=== PATIENT | female | born 1950 | race Two or more races ===

== ENCOUNTER 2018-03-23 15:01 | Outpatient (CLI) | payer OTHER ==
[~2018-03-23 15:01] MED LIST: DICLOFENAC POTA50 MG PO
== END 2018-03-23 15:22 | disposition home or self-care (01) ==
LOC: RAD 15:01
DX: S42.341D Displaced spiral fracture of shaft of humerus, right arm, subsequent encounter for fracture with routine healing (principal)

== ENCOUNTER 2020-02-28 15:59 | Outpatient (CLI) | payer OTHER | END 2020-02-28 16:03 | disposition home or self-care (01) | LOC: RAD 15:59 | PROVIDERS: ATTEND Physical Medicine & Rehabilitation | DX: M79.671 Pain in right foot (principal); S99.921A Unspecified injury of right foot, initial encounter ==

== ENCOUNTER 2020-10-11 16:58 | Outpatient (CLI) | payer OTHER | END 2020-10-11 17:02 | disposition home or self-care (01) | LOC: RAD 16:58 | PROVIDERS: ATTEND Family Medicine | DX: S20.212A Contusion of left front wall of thorax, initial encounter (principal) ==

== ENCOUNTER 2021-01-21 16:07 | Outpatient (CLI) | payer OTHER | END 2021-01-21 16:14 | disposition home or self-care (01) | LOC: RAD 16:07 | PROVIDERS: ATTEND Family Medicine | DX: S90.32XA Contusion of left foot, initial encounter (principal) ==

== ENCOUNTER 2021-05-14 08:49 | Outpatient (CLI) | payer OTHER | END 2021-05-14 11:00 | disposition home or self-care (01) | LOC: WOUND MED 08:49 | PROVIDERS: ATTEND Surgery | DX: L97.821 Non-pressure chronic ulcer of other part of left lower leg limited to breakdown of skin (principal); R60.0 Localized edema | CPT/HCPCS: G0463; A4554; A4930; A6216 ==

== ENCOUNTER 2025-04-09 10:29 | Outpatient (CLI) | payer OTHER ==
[~2025-04-09 10:29] MED LIST changes: +DICLOFENAC SODI50 MG PO
== END 2025-04-09 10:30 | disposition home or self-care (01) ==
LOC: NUCLEAR 10:29
PROVIDERS: ATTEND Internal Medicine Hematology & Oncology
DX: I87.2 Venous insufficiency (chronic) (peripheral) (principal)